=== PATIENT | female | born 1960 | race Caucasian/White ===

== ENCOUNTER 2022-05-06 10:03 | Outpatient (CLI) | payer OTHER, SELFPAY ==
--- NOTE | 2022-05-06 10:15 | CRLHL7_ITS ---
For Patients: As a result of the Century Cures Act, medical imaging exams and procedure reports are released immediately into your electronic medical record. You may view this report before your referring provider. If you have questions, please contact your health care provider. BILATERAL SCREENING MAMMOGRAM WITH COMPUTER-AIDED DETECTION AND TOMOSYNTHESIS TECHNIQUE: CC and MLO views were obtained. These mammographic images have been obtained using full-field digital technique. These mammographic images were interpreted with the benefit of computer-aided detection. Breast Tomosynthesis was used in this interpretation. COMPARISON FILM: 04/26/21, 03/02/20, 08/31/18. FINDINGS: The breasts are heterogeneously dense, which may obscure small masses IMPRESSION: There is no radiographic evidence for malignancy. ASSESSMENT: BI-RADS Category 2: Benign RECOMMENDATION: Routine screening mammogram in 1 year. A lay language report of this examination will be provided to the patient. Constance Corbett M.D. Diagnostic/Breast Radiologist [email or web address] TARYN/Dictated by: Constance Corbett MD @ 05/06/2022 11:14:00 AM (Electronically Signed)
== END 2022-05-06 10:04 | disposition home or self-care (01) ==
LOC: MAMMO 10:03
PROVIDERS: PCP Family Medicine; Visit Provider Family Medicine
DX: Z12.31 Encounter for screening mammogram for malignant neoplasm of breast (principal); R92.2 Inconclusive mammogram
CPT/HCPCS: 77063; 77067

== ENCOUNTER 2023-09-19 14:04 | Outpatient (CLI) | payer OTHER, SELFPAY ==
--- NOTE | 2023-09-19 15:00 | MM_ITS ---
Final Report Patient: NANCY COLLIER Facility:?[facility] Patient ID:?[id number] :?[id number] Study:?XRay Breast Bilateral 3D W/CAD-09/19/2023 3:17:15 PM Ordering Physician:Demond Final Report: BILATERAL SCREENING MAMMOGRAM WITH COMPUTER-AIDED DETECTION AND TOMOSYNTHESIS TECHNIQUE: CC and MLO views were obtained. These mammographic images have been obtained using full-field digital technique. These mammographic images were interpreted with the benefit of computer-aided detection. Breast Tomosynthesis was used in this interpretation. COMPARISON FILM: 05/06/22, 04/26/21, 03/02/20. FINDINGS: There are scattered areas of fibroglandular density. IMPRESSION: There is no radiographic evidence for malignancy. ASSESSMENT: BI-RADS Category 1: Negative RECOMMENDATION: Routine screening mammogram in 1 year. A lay language report of this examination will be provided to the patient. Merrick Randolph M.D. Diagnostic Radiologist [email or web address] DSM/sp R& Transcribed: 4:14 p.m. SP/Dictated by: Merrick Randolph MD @ 09/20/2023 12:17:00 PM (Electronic Signature)
== END 2023-09-19 14:05 | disposition home or self-care (01) ==
PROVIDERS: PCP Family Medicine; Visit Provider Family Medicine
DX: Z12.31 Encounter for screening mammogram for malignant neoplasm of breast (principal)
CPT/HCPCS: 77063; 77067

== ENCOUNTER 2024-09-23 08:55 | Outpatient (CLI) | payer OTHER, SELFPAY ==
--- NOTE | 2024-09-23 09:15 | CRLHL7_ITS ---
For Patients: As a result of the Century Cures Act, medical imaging exams and procedure reports are released immediately into your electronic medical record. You may view this report before your referring provider. If you have questions, please contact your health care provider. BILATERAL SCREENING MAMMOGRAM WITH COMPUTER-AIDED DETECTION AND TOMOSYNTHESIS TECHNIQUE: CC and MLO views were obtained. These mammographic images have been obtained using full-field digital technique. These mammographic images were interpreted with the benefit of computer-aided detection. Breast Tomosynthesis was used in this interpretation. COMPARISON FILM: 09/19/23, 05/06/22, 04/26/21. FINDINGS: The breasts are heterogeneously dense, which may obscure small masses. IMPRESSION: There is no radiographic evidence for malignancy. ASSESSMENT: BI-RADS Category 2: Benign RECOMMENDATION: Routine screening mammogram in 1 year. A lay language report of this examination will be provided to the patient. Merrick Randolph M.D. Diagnostic Radiologist [email or web address] SP/Dictated by: Merrick Randolph MD @ 09/25/2024 11:43:00 AM (Electronically Signed)
== END 2024-09-23 08:56 | disposition home or self-care (01) ==
LOC: MAMMO 08:55
PROVIDERS: PCP Family Medicine; Visit Provider Family Medicine
DX: Z12.31 Encounter for screening mammogram for malignant neoplasm of breast (principal); R92.333 Mammographic heterogeneous density, bilateral breasts
CPT/HCPCS: 77063; 77067

== ENCOUNTER 2024-10-09 07:35 | Outpatient (CLI) | payer OTHER, SELFPAY | END 2024-10-09 07:36 | disposition home or self-care (01) | LOC: NFLDREF 10-11 06:54 | PROVIDERS: PCP Family Medicine; Referring Provider Family Medicine; Visit Provider Family Medicine | DX: R53.83 Other fatigue (principal); Z13.6 Encounter for screening for cardiovascular disorders | CPT/HCPCS: 80053; 80061 ==

== ENCOUNTER 2024-11-25 06:59 | Outpatient (CLI) | payer OTHER, SELFPAY ==
--- NOTE | 2024-11-25 08:38 | P.ANES_ITS ---
Anesthesia Charges Start Date/Time Anesthesia Start Date: 11/25/24 Anesthesia Start Time: 08:08 Stop Date/Time Anesthesia Stop Date: 11/25/24 Anesthesia Stop Time: 08:34 Coding CPT Codes CPT Codes: ANES LWR INTST SCR COLSC - 40528 ([id number]) P2 - PATIENT W/MILD SYST DISEASE, QK - PRINTING SALES REPRESENTATIVE 2-4 CNCRNT ANES PROC, QX - CAFETERIA FOOD SERVER SVC W/ MD MED DIRECTION
--- NOTE | 2024-11-25 08:38 | W.ANESCHARGE ---
Anesthesia Charges Start Date/Time Anesthesia Start Date: 11/25/24 Anesthesia Start Time: 08:08 Stop Date/Time Anesthesia Stop Date: 11/25/24 Anesthesia Stop Time: 08:34 Coding CPT Codes CPT Codes: ANES LWR INTST SCR COLSC - 84007 ([id number]) P2 - PATIENT W/MILD SYST DISEASE, QK - SENIOR IT PROJECT MANAGER 2-4 CNCRNT ANES PROC, QX - LABOR/EXCAVATOR SVC W/ MD MED DIRECTION
--- NOTE | 2024-11-25 11:50 | P.ANES_ITS ---
Anesthesia Charges Start Date/Time Anesthesia Start Date: 11/25/24 Anesthesia Start Time: 08:08 Stop Date/Time Anesthesia Stop Date: 11/25/24 Anesthesia Stop Time: 08:34 Coding CPT Codes CPT Codes: ANES LWR INTST SCR COLSC - 59989 ([id number]) P2 - PATIENT W/MILD SYST DISEASE, QK - EMPLOYMENT PROGRAMS ANALYST 2-4 CNCRNT ANES PROC, QX - DESTINATION SPECIALIST SVC W/ MD MED DIRECTION
--- NOTE | 2024-11-25 11:50 | W.ANESCHARGE ---
Anesthesia Charges Start Date/Time Anesthesia Start Date: 11/25/24 Anesthesia Start Time: 08:08 Stop Date/Time Anesthesia Stop Date: 11/25/24 Anesthesia Stop Time: 08:34 Coding CPT Codes CPT Codes: ANES LWR INTST SCR COLSC - [id number] ([id number]) P2 - PATIENT W/MILD SYST DISEASE, QK - HIGHER LEVEL TEACHING ASSISTANT 2-4 CNCRNT ANES PROC, QX - STEAM GENERATING POWERPLANT MECHANIC SVC W/ MD MED DIRECTION
== END 2024-11-25 07:00 | disposition home or self-care (01) ==
LOC: OP CLINIC 07:00
PROVIDERS: PCP Family Medicine; Visit Provider Internal Medicine
DX: Z12.11 Encounter for screening for malignant neoplasm of colon (principal)
CPT/HCPCS: 00812; 45378; J2704